=== PATIENT | female | born 1990 ===

== ENCOUNTER 2018-07-06 20:12 | Emergency (ER) | payer MEDICAID ==
[2018-07-06 20:54] VITALS: RESP 18; O2SAT 100
--- NOTE | 2018-07-06 21:15 | ED PDOC ---
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 10 weeks 4 days , c/o vaginal spotting started today with no fall or trauma/sexual activities. Pt. stated that she noticed it when she was wiping after the urinating, no fever or chills, no abdominal or pelvic pain, no night sweat, no rash, no dizziness, no change in vision, no pain, no other medical or psychological complaints. Past Medical History - Provider Review Nursing Documentation Reviewed: Yes - Infectious Disease Hx of Infectious Diseases: None - Reproductive Currently : Yes - Psychiatric Hx Substance Use: No - Surgical History Hx Section: Yes - Anesthesia Hx Anesthesia: Yes Hx Anesthesia Reactions: No Hx Malignant Hyperthermia: No Family/Social History - Physician Review Nursing Documentation Reviewed: Yes Family/Social History: Unknown Family HX Smoking Status: Never Smoked Hx Alcohol Use: No Hx Substance Use: No Allergies/Home Meds Allergies/Adverse Reactions: Allergies No Known Allergies Allergy (Verified 07/06/18 20:54) Home Medications: Home Meds Medication Instructions Recorded Confirmed No Known Home Med 07/06/18 07/06/18 Review of Systems - Review of Systems Constitutional: absent: Fatigue Eyes: absent: Vision Changes ENT: absent: Hearing Changes Respiratory: absent: SOB, Cough Cardiovascular: absent: Chest Pain Gastrointestinal: absent: Abdominal Pain, Nausea, Vomiting Genitourinary Female: Vaginal Bleeding. absent: Dysuria, Frequency, Hematuria, Urine Output Changes, Vaginal Discharge Musculoskeletal: absent: Arthralgias, Back Pain Skin: absent: Rash, Pruritis Neurological: absent: Headache, Dizziness Psychiatric: absent: Anxiety, Depression, Suicidal Ideation Physical Exam Vital Signs Reviewed: Yes Vital Signs Temp Pulse Resp BP Pulse Ox 07/06/18 20:48 98.9 F 72 18 121/79 100 Temperature: Afebrile Blood Pressure: Normal Pulse: Regular Respiratory Rate: Normal Appearance: Positive for: Well-Appearing, Non-Toxic, Comfortable Pain Distress: None Mental Status: Positive for: Alert and Oriented X 3 - Systems Exam Head: Present: Atraumatic, Normocephalic Pupils: Present: PERRL Extroacular Muscles: Present: EOMI Conjunctiva: Present: Normal Mouth: Present: Moist Mucous Membranes Neck: Present: Normal Range of Motion Respiratory/Chest: Present: Clear to Auscultation, Good Air Exchange. No: Respiratory Distress, Accessory Muscle Use Cardiovascular: Present: Regular Rate and Rhythm, Normal S1, S2. 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 No: Vaginal Discharge, Vaginal Bleeding, Vaginal Lesions, Adenexal Tenderness, Adenexal Mass, Cervical Motion Tendernes, Odor Back: Present: Normal Inspection. No: CVA Tenderness Upper Extremity: Present: Normal Inspection. No: Cyanosis, Edema Lower Extremity: Present: Normal Inspection. No: Edema Neurological: Present: GCS=15, CN II-XII Intact, Speech Normal Skin: Present: Warm, Dry, Normal Color. No: Rashes Psychiatric: Present: Alert, Oriented x 3, Normal Insight, Normal Concentration Medical Decision Making ED Course and Treatment: 07/06/18 21:15 -labs -sonogram -observe and reassess 07/06/18 23:48 -Urine hcg is positive -Beta hcg 110,090 -Labs show no acute findings except wbc 13.8 (afebrile, likely stress) -UA show no UTI -Sonogram Single live intrauterine gestation - 11 weeks 1 day. heart rate is 166.8 bpm. Left ovarian cyst. -Type and screen: A+ -Pt. feels well, IVF given, refused to repeat the CBC as she wants to go home, risks and benefits explained. I discussed the case/labs/radiology results with Dr. Bender and he recommend to discharge home. -Discharge home with education on pelvic rest, tylenol for pain as needed, stay hydrated, bed rest, follow up with your own pmd and obgyn within 2 days, repeat the betahcg in 2 days as yours is 110,090 today, repeat the CBC in 4-5 days as well, please return to the ER for any fever/chills with any new or worsening/signs or symptoms, return to the ER for any new or worsening signs or symptoms. - RAD Interpretation Radiology Orders: 07/06/18 21:08 TRANSVAGINAL [US] Stat Procedure OB Transvaginal Ultrasound History Spotting. Comparison None available. Findings Uterus Single Live intrauterine gestation. CRL measures 3.9 cm, equivalent to 10 weeks 5 days gestation. Gestational sac diameter measures 5.4 cm, equivalent to 11 weeks 3 days gestation. Yolk sac identified, measures 0.35 cm. Heart rate: 166.8 bpm. age (Ultrasound estimated): 11 weeks 1 day. Tess-gestational hemorrhage: None. Uterus measures 14.1 x 7.0 x 9.1 cm. Anteverted. No mass. Cervix Long and closed. No cervical abnormality seen. Right Ovary Measures 4.0 x 3.5 x 3.1 cm. No mass. Normal flow. Left Ovary Measures 4.1 x 2.8 x 3.2 cm. Normal flow. Cyst measures 1.7 x 1.6 x 1.8 cm. Free Fluid None. Other Findings None. Impression Single live intrauterine gestation - 11 weeks 1 day. heart rate is 166.8 bpm. Left ovarian cyst. Electronically signed on Jul 06, 2018 11:15:54 PM EST by: Keven Berg M.D., KIRSTIN Certified By ABR & CBC[facility] Fellowship Trained MRI and CT Specialist Bench Manager: Radiologist - PA / LACTATION SPECIALIST / Resident Statement MD/DO has reviewed & agrees with the documentation as recorded. Disposition/Present on Arrival - Present on Arrival Any Indicators Present on Arrival: No History of DVT/PE: No History of Uncontrolled Diabetes: No Urinary Catheter: No History of Decub. Ulcer: No History Surgical Site Infection Following: None - Disposition Have Diagnosis and Disposition been Completed?: Yes Diagnosis: , Vaginal spotting, Leukocytosis Disposition: HOME/ ROUTINE Disposition Time: 23:51 Patient Plan: Discharge Condition: IMPROVED Additional Instructions: -Discharge home with education on pelvic rest, tylenol for pain as needed, stay hydrated, bed rest, follow up with your own pmd/hematology/oncology and obgyn within 2 days, repeat the betahcg in 2 days as yours is 110,090 today, repeat the CBC in 4-5 days as well, please return to the ER for any fever/chills with any new or worsening/signs or symptoms, return to the ER for any new or worsening signs or symptoms. Referrals: Jen Haddad MD [Primary Care Provider] - Follow up with primary Rizwana sOwald MD [Staff Provider] - Follow up with primary Inocencio Basilio MD [Staff Provider] - Follow up with primary Forms: [employer] (Greek), WORK NOTE
[2018-07-06 21:55] LABS: BASO # 0.02 K/mm3 (0.0-2.0); BASO % 0.1 % (0.0-3.0); EOS # 0.1 (0.0-0.7); EOS % 0.7 % (1.5-5.0); HEMOGLOBIN 11.7 g/dL (12.0-16.0); LYMPH # 2.9 (1.2-3.4); LYMPH % 20.8 % (22.0-35.0); MEAN CELL VOLUME 85.6 fl (80.0-105.0); MEAN CORPUSCULAR HGB CONC 33.8 g/dl (31.0-37.0); MEAN PLATELET VOLUME 9.8 fl (7.0-11.0); MONO # 0.7 (0.1-0.6); MONO % 4.7 % (1.0-6.0); RBC 4.04 10^6/uL (3.5-6.1); RED CELL DISTRIBUTION WIDTH 12.8 % (11.5-14.5); URINE BILIRUBIN NEGATIVE (NEGATIVE); URINE BLOOD TRACE-INTACT (NEGATIVE); URINE GLUCOSE (UA) NEGATIVE (NEGATIVE); URINE LEUKOCYTE ESTERASE NEGATIVE Leu/uL (NEGATIVE); URINE PROTEIN NEGATIVE mg/dL (<30 mg/dL); URINE UROBILINOGEN 0.2 E.U./dL (<1 E.U./dL); WHITE BLOOD COUNT 13.8 10^3/uL (4.5-11.0)
[2018-07-06 21:56] LABS: URINE APPEARANCE CLEAR (CLEAR); URINE COLOR YELLOW (YELLOW)
[2018-07-06] MEDS ORDERED: Sodium Chloride 0.9% 1,000 ML IV STA (22:00)
[2018-07-06 22:05] LABS: ALT/SGPT 9 U/L (7-56); AST/SGOT 22 U/L (14-36); BLOOD UREA NITROGEN 7 mg/dL (7-21); CALCIUM 9.3 mg/dL (8.4-10.5); GFR NON-AFRICAN AMERICAN > 60
[2018-07-07 00:08] VITALS: TEMP 98.6
[2018-07-07 00:19] VITALS: BP 120/73; PULSE 73
--- NOTE | 2018-07-07 12:37 | US ---
Date of service: 07/06/2018 HISTORY: vaginal spotting and COMPARISON: None available. TECHNIQUE: Transvaginal sonographic evaluation of the pelvis performed. FINDINGS: UTERUS: Measures 14.1 x 7.2 x 9.1 cm. Anteverted. Normal in size and appearance. No fibroid or other mass lesion seen. ENDOMETRIUM: There is a single living intrauterine gestation. Gestational sac: MSD = 5.4 cm = 11 weeks 3 days Yolk sac: 0.35 cm pole: CRL = 3.9 cm = 10 weeks 5 days Average ultrasound age: 11 weeks 1 day +/-0 weeks 5 days Heart motion: 166 BPM GERALDO based on average ultrasound age: 0901/24/2019 LMP = 04/23/2018 CERVIX: No cervical abnormality identified. RIGHT OVARY: Measures 4.0 x 3.5 x 3.1 cm. No solid mass. Normal flow. LEFT OVARY: Measures 4.1 x 2.8 x 3.2 cm. No solid mass. Normal flow. Small cyst left ovary measuring 1.7 x 1.6 x 1.8 cm FREE FLUID: No significant free fluid noted. OTHER FINDINGS: None. IMPRESSION: Single living intrauterine gestation with average ultrasound age 11 weeks 1 day +/-0 weeks 5 days. Heart rate document at 166 BPM. Small cyst left ovary GERALDO based on average ultrasound age 0901/24/2019
== END 2018-07-07 00:15 | disposition home or self-care (01) ==
LOC: ED 20:12
DX: O26.891 Other specified pregnancy related conditions, first trimester (principal); D72.829 Elevated white blood cell count, unspecified; O26.851 Spotting complicating pregnancy, first trimester; Z3A.11 11 weeks gestation of pregnancy
CPT/HCPCS: 76817; 80053; 81001; 81025; 84702; 85025; 86850; 86900; 99283; J7030